=== PATIENT | male | born 1990 | race Caucasian/White ===

== ENCOUNTER 2025-07-17 23:12 | Emergency (ER) | payer OTHER, SELFPAY ==
[2025-07-17 23:25] VITALS: BP 144/90; PULSE 78; RESP 16; TEMP 36.4; O2SAT 97
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
[2025-07-18] MEDS: Silver sulfaDIAZINE 1% 25 GM TUBE TP (00:57)
[2025-07-18] MEDS: Lidocaine/Epinephri/Tetracaine Topical Gel 3 ML TP (00:59)
== END 2025-07-18 01:18 | disposition home or self-care (01) ==
PROVIDERS: Emergency Provider Emergency Medicine; PCP Family Medicine
DX: T23.212A Burn of second degree of left thumb (nail), initial encounter (principal); T24.221A Burn of second degree of right knee, initial encounter; T24.222A Burn of second degree of left knee, initial encounter; T54.3X1A Toxic effect of corrosive alkalis and alkali-like substances, accidental (unintentional), initial encounter
CPT/HCPCS: 99283 ×2